=== PATIENT | female | born 1965 | race Caucasian/White ===

== ENCOUNTER 2022-11-23 10:08 | Emergency (ER) | payer SELFPAY ==
[~2022-11-23] VITALS: Ht 165.1 cm; Wt 54.4 kg
[2022-11-23] MEDS ORDERED: ALBU90OI INH ×2 (10:46→10:54)
[2022-11-23] MEDS ORDERED: LEVSOD150 PO ×2 (10:46→10:54)
[2022-11-23] MEDS ORDERED: Ativan1 MG PO (10:47)
[2022-11-23] MEDS ORDERED: HYDHCL25 PO (10:54)
[2022-11-23] MEDS ORDERED: Ativan0.5 MG PO (10:54)
== END 2022-11-23 11:02 | disposition home or self-care (01) ==
LOC: ER 10:08
DX: Z76.0 Encounter for issue of repeat prescription (principal); F41.9 Anxiety disorder, unspecified
CPT/HCPCS: 99282